=== PATIENT | male | born 1960 | race Caucasian/White ===

== ENCOUNTER 2019-09-27 12:38 | Emergency (ER) | payer MEDICAID ==
[~2019-09-27] VITALS: Ht 182.9 cm; Wt 72.6 kg
--- NOTE | 2019-09-27 12:46 | NUR ---
Called ride assembly supervisor for 1:1 sitter. none available at this time. frequent visual checks done. safety precautions implemented
--- NOTE | 2019-09-27 12:48 | NUR ---
RN guest service supervisor aware. no 1:1 sitter available at this time
--- NOTE | 2019-09-27 12:48 | NUR ---
Patient BIB [id number]. c/o AMS. Patient A&O to name and place. Per EMT report patient called 911 from hospital parking lot c/o wanting to hurt himself. No specific plan per patient. Breathing even and unlabored. denies any SOB / CP / dizziness / blurred vision. Denies any N / V / D. Speech is clear and able to make needs known / follow simple commands. Safety precautions implemented. s/r up x2
--- NOTE | 2019-09-27 13:00 | NUR ---
1:1 SITTER AT BEDSIDE
[2019-09-27 13:06] LABS: BASOPHILS # (AUTO) 0.1 K/uL (0.0-8.0); BASOPHILS % (AUTO) 1.1 % (0.0-2.0); EOSINOPHILS % (AUTO) 0.5 % (0.0-7.0); HEMATOCRIT 47.2 % (36.7-47.1); HEMOGLOBIN 16.1 g/dL (12.5-16.3); LYMPHOCYTES # (AUTO) 3.5 K/uL (20.0-40.0); LYMPHOCYTES % (AUTO) 42.2 % (20.5-51.5); MEAN CORPUSCULAR HEMOGLOBIN 34.3 uug (23.8-33.4); MEAN CORPUSCULAR HGB CONC 34 g/dL (32.5-36.3); MEAN CORPUSCULAR VOLUME 100.4 fL (73.0-96.2); MONOCYTES # (AUTO) 0.4 K/uL (2.0-10.0); MONOCYTES % (AUTO) 5.3 % (0.0-11.0); NEUTROPHILS # (AUTO) 4.2 K/uL (1.8-8.9); NEUTROPHILS % (AUTO) 50.9 % (38.5-71.5); PLATELET COUNT (AUTO) 257 K/uL (152-348); WHITE BLOOD COUNT (AUTO) 8.2 K/uL (3.6-10.2)
[2019-09-27 13:15] LABS: CARBON DIOXIDE 23 mmol/L (21-32); CHLORIDE 97 mmol/L (98-107); CREATININE 1.1 mg/dL (0.6-1.3); GLUCOSE 136 mg/dL (74-106); UREA NITROGEN, BLOOD 9 mg/dL (7-18)
[2019-09-27 13:21] LABS: ALANINE AMINOTRANSFERASE 39 U/L (16-63); ALKALINE PHOSPHATASE 59 U/L (50-136); ASPARTATE AMINOTRANSFERASE 58 U/L (15-37); BILIRUBIN,DIRECT 0.1 mg/dL (0.0-0.2); BILIRUBIN,TOTAL 0.4 mg/dL (0.2-1.0); TOTAL PROTEIN, SERUM 8.7 g/dL (6.4-8.2); VALPROIC ACID < 3 ug/mL (50-100)
[2019-09-27 13:24] LABS: ACETAMINOPHEN < 2.0 ug/mL (10-30)
--- NOTE | 2019-09-27 13:30 | NUR ---
divia at bedside for one to one
[2019-09-27] MEDS ORDERED: IV NORMAL SALINE 1000 ML BAG IV ONE (13:45)
[2019-09-27 13:52] LABS: ETHANOL 390 MG/DL (0-0)
--- NOTE | 2019-09-27 14:33 | NUR ---
sandra allen at bedside.
[2019-09-27] MEDS ORDERED: MORPHINE SULFATE 4 MG/1 ML DISP.SYRIN IM ONE (14:45)
[2019-09-27] MEDS ORDERED: MORPHINE SULFATE 4 MG/1 ML DISP.SYRIN ONE (14:59)
[2019-09-27] MEDS ORDERED: IV D5 1/2 NS 1000 ML 1,000 ML IV ONE (16:13)
[2019-09-27] MEDS ORDERED: TDAP DIPH,PERTUSS,TET VAC/PF 0.5 ML DISP.SYRIN IM ONE ×2 (17:37→17:45)
[2019-09-27] MEDS ORDERED: NEOMY/BACITRA/POLYMYXIN B OINT UD PACKET TP ONE (17:37)
--- NOTE | 2019-09-27 17:43 | NUR ---
D5 1/2 NS STOPPED INFUSING [place] [address] BRIAN. NO ASE NOTED
--- NOTE | 2019-09-27 17:45 | NUR ---
IV removed. Catheter intact and site benign. Pressure and 4x4 gauze applied to site. No bleeding noted. Patient given written and verbal discharge instructions. Patient verbalizes understanding of instructions. Patient is ambulatory with steady gait. Refuses offer of long term placement. Patient given list of available shelters in surrounding area. Patient denies any HI / SI at this time. Instructed patient not to drive. Patient agrees that he is not to drive and states "I am not going to drive".
[2019-09-27 17:50] VITALS: BP 142/88
[2019-09-28] MEDS ORDERED: TRAZ150T75 PO (00:51)
[2019-09-28] MEDS ORDERED: DIVA500T4 PO (00:51)
[2019-09-28] MEDS ORDERED: FLUO20CA36 PO (00:51)
[2019-09-28] MEDS ORDERED: HYDR-4354 PO (00:51)
[2019-09-28] MEDS ORDERED: HYDR25CA PO (00:51)
== END 2019-09-27 17:45 | disposition home or self-care (01) ==
LOC: ER 12:38
DX: F10.129 Alcohol abuse with intoxication, unspecified (principal); E87.2 Acidosis; Y90.8 Blood alcohol level of 240 mg/100 ml or more; F20.9 Schizophrenia, unspecified; Z91.14 Patient's other noncompliance with medication regimen; Z59.0 Homelessness; F17.210 Nicotine dependence, cigarettes, uncomplicated; R00.0 Tachycardia, unspecified; M54.2 Cervicalgia; S60.811A Abrasion of right wrist, initial encounter; W19.XXXA Unspecified fall, initial encounter; Y92.89 Other specified places as the place of occurrence of the external cause
CPT/HCPCS: 36415; 70450; 71045; 72125; 80048; 80076; 80164; 80307; 80329; 85025; 87426; 90471; 90715; 93005; 96360; 96372; 99284; 99406; G0480; J2270; J3490; A4663; J7030

== ENCOUNTER 2019-09-28 00:39 | Emergency (ER) | payer MEDICAID ==
[~2019-09-28] VITALS: Ht 177.8 cm; Wt 68.0 kg
[2019-09-28] MEDS ORDERED: TRAZ150T75 PO (00:51)
[2019-09-28] MEDS ORDERED: FLUO20CA36 PO (00:51)
[2019-09-28] MEDS ORDERED: DIVA500T4 PO (00:51)
[2019-09-28] MEDS ORDERED: HYDR-4354 PO (00:51)
[2019-09-28] MEDS ORDERED: HYDR25CA PO (00:51)
--- NOTE | 2019-09-28 01:02 | NUR ---
59 YO MALE BROUGHT IN BY SELF FROM STREETS WITH C/O OF GENERALIZED PAIN, WEAKNESS. PT STATES "I WAS HERE AT THIS HOSPITAL TODAY AND LEFT, THEY WANTED TO KEEP ME BUT I LEFT." PT WITH HX OF ALCOHOLISM. PT A/OX4, SPEAKING COMPLETE SENTENCES. AMBULATORY WITH STEADY GAIT. VITAL SIGNS WNL. DENIES N/V/D. RESPIRATIONS EVEN AND UNLABORED. PENDING MD EXAMINATION.
[2019-09-28] MEDS ORDERED: IV NORMAL SALINE 1000 ML BAG IV ONE (01:15)
[2019-09-28 01:31] LABS: BASOPHILS # (AUTO) 0.1 K/uL (0.0-8.0); BASOPHILS % (AUTO) 0.8 % (0.0-2.0); EOSINOPHILS % (AUTO) 0.1 % (0.0-7.0); HEMATOCRIT 37.8 % (36.7-47.1); LYMPHOCYTES # (AUTO) 4.1 K/uL (20.0-40.0); LYMPHOCYTES % (AUTO) 48.3 % (20.5-51.5); MEAN CORPUSCULAR HEMOGLOBIN 34.4 uug (23.8-33.4); MEAN CORPUSCULAR HGB CONC 35 g/dL (32.5-36.3); MEAN CORPUSCULAR VOLUME 99.8 fL (73.0-96.2); MONOCYTES # (AUTO) 0.6 K/uL (2.0-10.0); MONOCYTES % (AUTO) 7.5 % (0.0-11.0); NEUTROPHILS # (AUTO) 3.7 K/uL (1.8-8.9); NEUTROPHILS % (AUTO) 43.3 % (38.5-71.5); PLATELET COUNT (AUTO) 176 K/uL (152-348); RED BLOOD CELL COUNT(AUTO) 3.78 MIL/uL (4.06-5.63); WHITE BLOOD COUNT (AUTO) 8.6 K/uL (3.6-10.2)
[2019-09-28 01:34] LABS: CREATININE 1.2 mg/dL (0.6-1.3); POTASSIUM 3.9 mmol/L (3.5-5.1)
[2019-09-28 01:41] LABS: BILIRUBIN,DIRECT 0.2 mg/dL (0.0-0.2); BILIRUBIN,TOTAL 1.4 mg/dL (0.2-1.0); TOTAL PROTEIN, SERUM 7.4 g/dL (6.4-8.2)
[2019-09-28 01:46] LABS: THYROID STIMULATING HORMONE 2.41 mIU/mL (0.358-3.740)
[2019-09-28] MEDS ORDERED: LORAZEPAM 0.5 MG TABLET PO ONE (02:00)
[2019-09-28 02:31] LABS: *BILIRUBIN,URIN NEGATIVE (NEGATIVE); *BLOOD, URINE NEGATIVE (NEGATIVE); *CLARITY,URINE CLEAR (CLEAR); *COLOR,URINE DARK YELLOW (YELLOW); *KETONES,URINE 1+ (NEGATIVE); *UROBILINOGEN,URINE 0.2 E.U./dl (NORMAL); LEUKOCYTE ESTERASE ,URINE NEGATIVE (NEGATIVE); NITRITE, URINE NEGATIVE (NEGATIVE); PH,URINE 5.5 (5.0-8.0); UGLUCOSE NEGATIVE (NEGATIVE)
[2019-09-28 02:38] LABS: *AMPHETAMINE, URINE NEGATIVE (NEGATIVE); *BARBITURATE, URINE NEGATIVE (NEGATIVE); *CANNABINOID, URINE NEGATIVE (NEGATIVE); *COCCAINE, URINE NEGATIVE (NEGATIVE); *OPIATE, URINE POSITIVE (NEGATIVE); *PHENCYCLIDINE SCREEN,URINE NEGATIVE (NEGATIVE)
[2019-09-28 02:44] LABS: BACTERIA,URINE NONE SEEN /HPF (NONE SEEN); RBC,URINE 0-3 /HPF (0-3); WBC,URINE NONE SEEN /HPF (0-3)
--- NOTE | 2019-09-28 03:05 | NUR ---
PATIENT MEDICALLY CLEARED FOR DISCHARGE. AFTERCARE INSTRUCTIONS GIVEN AND PT VERBALIZED UNDERSTANDING. ALL QUESTIONS ANSWERED. PT ADVISED TO FOLLOW UP WITH PRIMARY CARE PHYSICIAN WITHIN 1 TO 2 DAYS AND TO RETURN TO ED IF NEW OR WORSENING OF SYMPTOMS APPEAR. PT SIGNED HOMELESS WAIVER AND VERBALIZED HE WILL MAKE ARRANGEMENTS TO RETURN TO PRIOR LIVING LOCATION. PT AWAKE, A/OX4, SPEAKING COMPLETE SENTENCES. DENIES PAIN OR ANY DISTRESS AT THIS MOMENT. VITAL SIGNS STABLE. IV DC'D. WRIST BAND REMOVED. PT LEFT ED AMBULATORY WITH STEADY GAIT.
[2019-09-28 03:13] VITALS: BP 108/68
== END 2019-09-28 03:14 | disposition home or self-care (01) ==
LOC: ER 00:42
DX: R25.1 Tremor, unspecified (principal); F10.20 Alcohol dependence, uncomplicated; F31.9 Bipolar disorder, unspecified; F20.9 Schizophrenia, unspecified; Z91.14 Patient's other noncompliance with medication regimen; Z59.0 Homelessness; R94.31 Abnormal electrocardiogram [ECG] [EKG]
CPT/HCPCS: 36415; 80307; 84443; 85025; 93005; A4663; J7030